=== PATIENT | female | born 1980 | race Caucasian/White ===

== ENCOUNTER 2018-11-10 09:13 | Outpatient (REF) | payer OTHER, SELFPAY ==
--- NOTE | 2018-11-10 08:40 | PAPFT_PTH ---
PATIENT: Juliane Hines LOC: [facility] U#:[id number] AGE/SX: 38/F ROOM: RE11/10/[address]: Lori Benites NP : 1980 BED: DIS: 11/10/2018 SPEC #: [id number] RECD: 11/10/18 12:49 STATUS: CUCA WING #: [id number] RODNEY: 11/10/18 08:[address]: Lori Benites NP DEPT: [facility] Cytology RECD BY: Jenny Asencio ENTERED: 11/10/18 12:50 SP TYPE: PAPFT OTHR DR: Mahin Brian Tissues: 1 - CX/ENDOCX FOR PAP SMEARS Procedures: PAP THIN PREP/UVM Screening HPV DNA PROBE Comments: [id number] (CHLAMYDIA/GC)
[2018-11-11 14:49] LABS: Chlamydia Result Negative; GC Result Negative; Specimen Description SEE COMMENTS
== END 2018-11-10 09:33 ==
LOC: LBN 09:13
PROVIDERS: PCP Internal Medicine; Visit Provider Nurse Practitioner Women's Health
DX: Z12.4 Encounter for screening for malignant neoplasm of cervix (principal); Z11.51 Encounter for screening for human papillomavirus (HPV); Z11.3 Encounter for screening for infections with a predominantly sexual mode of transmission
CPT/HCPCS: 87491; 87591; 88142; 87624

== ENCOUNTER 2018-11-22 00:46 | Outpatient (CLI) | payer OTHER, SELFPAY ==
--- NOTE | 2018-11-22 13:56 | DI.US_ITS ---
SYMPTOMS/DIAGNOSIS: PAIN WITH INTERCOURSE, PELVIC AND PERINEAL PAIN, R10.2 PELVIC ULTRASOUND: Transabdominal and transvaginal examination was performed. The uterus measures 8.4 cm long x 4 cm AP x 4.8 cm transverse. The endometrial stripe is within normal limits at 0.8 cm. The uterus appears grossly unremarkable. The right ovary measures 3.8 x 2.2 x 2.0 cm. There are small follicular cysts. There is normal blood flow. No evidence of torsion is seen. The left ovary measures 3.3 x 2.1 x 3.3 cm. There is normal blood flow. No evidence of torsion. There is a 2.5 x 2.5 x 2.5 cm complex thick-walled cyst in the left ovary. There is no internal blood flow. There is no significant free pelvic fluid or hydronephrosis. IMPRESSION: A 2.5 cm complex left ovarian cyst. This is likely physiologic, but a follow-up examination in six to eight weeks is recommended to document resolution.
== END 2018-11-22 01:06 ==
PROVIDERS: PCP Internal Medicine; Visit Provider Nurse Practitioner Women's Health
DX: R10.2 Pelvic and perineal pain (principal); N94.10 Unspecified dyspareunia; N83.292 Other ovarian cyst, left side
CPT/HCPCS: 76830; 76856

== ENCOUNTER 2019-01-09 01:07 | Outpatient (CLI) | payer OTHER, SELFPAY ==
--- NOTE | 2019-01-09 07:51 | DI.US_ITS ---
SYMPTOM/DIAGNOSIS: N83.292 COMPLEX LT OVARIAN CYST PELVIC ULTRASOUND: Transabdominal and transvaginal exams were performed. The uterus measures 7.8 x 3.8 x 4.7 cm. No fibroids are identified. The endometrial stripe measures 4 mm in thickness. There is a small amount of fluid within the endometrial cavity. No focal endometrial abnormality is seen. The ovaries are normal in size and appearance. There is no evidence of a cyst or mass. No free fluid or hydronephrosis is seen. IMPRESSION: Pelvic ultrasound is within normal limits.
== END 2019-01-09 01:27 ==
PROVIDERS: PCP Internal Medicine; Visit Provider Nurse Practitioner Women's Health
DX: N83.292 Other ovarian cyst, left side (principal)
CPT/HCPCS: 76830; 76856

== ENCOUNTER 2019-04-07 01:16 | Outpatient (CLI) | payer OTHER, SELFPAY ==
--- NOTE | 2019-04-07 13:26 | DI.COMBO_ITS ---
SYMPTOMS/DIAGNOSIS: RIGHT BREAST PAIN, MASTODYNIA-N64.4, RADIATING TO ARM 1 MO AGO AND INTO LYMPH NODE, H/O MULTIPLE SCLEROSIS DIAGNOSTIC BILATERAL MAMMOGRAM AND RIGHT BREAST ULTRASOUND: Mammograms were interpreted according to the usual protocol including computer analysis with CAD system, tomosynthesis and C view imaging. The patient notes pain in the right breast as well as right axilla and right arm. No focal area of tenderness or palpable abnormality is noted. This is a baseline examination. The breasts are composed of heterogeneously dense fibroglandular tissue, breast density category C. On the right MLO view, there is a question of a nodular asymmetry posterior over the pectoral muscle. Multiple additional spot compression views with tomography were performed, which fail to demonstrate a persistent abnormality. No suspicious calcifications are seen in either breast. There is no visible skin thickening. Right breast ultrasound shows no evidence of a cyst or mass. No skin edema is seen. IMPRESSION: Category 1, negative mammogram and right breast ultrasound. Annual screening is recommended at age 40 or sooner if clinically indicated. [facility] ASSESSMENT OF FINDINGS: Negative. Category 1. Patient will receive a letter notifying them of these results. Bi-RADS category C. The breasts are heterogeneously dense, which may obscure small masses.
== END 2019-04-07 01:36 ==
PROVIDERS: PCP Internal Medicine; Visit Provider Nurse Practitioner Women's Health
DX: N64.4 Mastodynia (principal); R59.1 Generalized enlarged lymph nodes; G35 Multiple sclerosis
CPT/HCPCS: 76642; 77062; 77066; G0279

== ENCOUNTER 2021-03-10 15:50 | Outpatient (REF) | payer OTHER, SELFPAY ==
[2021-03-10 20:06] LABS: Abs Immature Grans 0.02 10^3/uL (0.0-0.06); Absolute Basophil Count 0.03 10^3/uL (0.0-0.2); Absolute Lymphocyte Count 0.38 10^3/uL (1.2-3.4); Basophils % 0.6; Eosinophils % 1.9; HCT 37.3 % (36.0-46.0); Immature Grans % 0.4; Lymphocytes % 7.1; MCH 29.4 pg (27.0-33.0); MCHC 32.2 % (32.0-36.0); MCV 91.4 fL (80-95); MPV 11.1 fL (8.0-11.0); Monocytes % 11.3; Neutrophils % 78.7; Nucleated RBC 0 %; Platelet Count 277 10^3/uL (130-400); RBC 4.08 10^6/uL (3.93-5.22); RDW 12.1 % (11.7-14.6); RDW-SD 40.6 fL; WBC 5.33 10^3/uL (4.4-10.8)
[2021-03-10 20:13] LABS: ALT 127 U/L (14-59); AST 36 U/L (15-37); Albumin 4.1 g/dL (3.4-5.0); Alkaline Phosphatase 46 U/L (46-116); Anion Gap 6.7 mmol/L (3-11); BUN 10 mg/dL (7-18); Bilirubin, Total 0.4 mg/dL (0.2-1.0); CO2 29.3 mmol/L (21.0-32.0); CREATININE 0.8 mg/dL (0.55-1.02); Calcium 9.5 mg/dL (8.5-10.1); Chloride 105 mmol/L (98-107); Glucose 88 mg/dL (74-106); Potassium 3.9 mmol/L (3.5-5.1); Sodium 141 mmol/L (136-145); Total Protein 6.8 g/dL (6.4-8.2)
== END 2021-03-10 15:51 | disposition home or self-care (01) ==
LOC: NCHCN 15:50
PROVIDERS: PCP Family Medicine; Visit Provider Internal Medicine
DX: G35 Multiple sclerosis (principal); Z51.81 Encounter for therapeutic drug level monitoring
CPT/HCPCS: 80053; 85025

== ENCOUNTER 2021-04-30 09:23 | Outpatient (REF) | payer OTHER, SELFPAY ==
[2021-05-01 06:54] LABS: ALT 77 U/L (14-59); AST 26 U/L (15-37); Albumin 4.1 g/dL (3.4-5.0); Alkaline Phosphatase 43 U/L (46-116); Bilirubin, Direct 0.2 mg/dL (0.0-0.2); Bilirubin, Total 0.9 mg/dL (0.2-1.0); Total Protein 6.8 g/dL (6.4-8.2)
[2021-05-01 07:11] LABS: Calculated LDL 97 mg/dL (<100); Cholesterol 170 mg/dL (<200); HDL Cholesterol 59 mg/dL (40-60); Triglyceride 73 mg/dL (<150)
== END 2021-04-30 09:24 | disposition home or self-care (01) ==
LOC: NCHCN 09:23
PROVIDERS: PCP Family Medicine; Visit Provider Internal Medicine
DX: R94.5 Abnormal results of liver function studies (principal)
CPT/HCPCS: 80061; 80076

== ENCOUNTER 2021-12-04 15:58 | Outpatient (REF) | payer OTHER, SELFPAY ==
[2021-12-04 19:04] LABS: ALT 69 U/L (14-59); AST 29 U/L (15-37); Albumin 4.1 g/dL (3.4-5.0); Alkaline Phosphatase 48 U/L (46-116); Bilirubin, Direct 0.1 mg/dL (0.0-0.2); Bilirubin, Total 0.4 mg/dL (0.2-1.0); Total Protein 6.9 g/dL (6.4-8.2)
== END 2021-12-04 15:59 | disposition home or self-care (01) ==
LOC: NCHCN 15:58
PROVIDERS: PCP Family Medicine; Visit Provider Internal Medicine
DX: R94.5 Abnormal results of liver function studies (principal)
CPT/HCPCS: 80076

== ENCOUNTER 2021-12-09 01:45 | Outpatient (RCR) | payer OTHER, SELFPAY ==
[2021-12-05 15:18] LABS: HCT 37.8 % (36.0-46.0); HGB 12.8 g/dL (11.2-15.7); MCH 29.4 pg (27.0-33.0); MCHC 33.9 % (32.0-36.0); MCV 87 fL (80-95); MPV 10.4 fL (8.0-11.0); Platelet Count 276 10^3/uL (130-400); RBC 4.36 10^6/uL (3.93-5.22); RDW-SD 38.4 fL; WBC 6.78 10^3/uL (4.4-10.8)
[2021-12-05 15:22] LABS: ESR < 1 mm/hr (0-20)
[2021-12-05] MEDS: Normal Saline Flush 10 ML SYR IVP (15:26)
[2021-12-05 15:36] LABS: Anion Gap 9.7 mmol/L (3-11); BUN 9 mg/dL (7-18); C-Reactive Protein 0.08 mg/dL (0.0-0.3); CO2 25.3 mmol/L (21.0-32.0); CREATININE 0.9 mg/dL (0.55-1.02); Calcium 8.9 mg/dL (8.5-10.1); Chloride 106 mmol/L (98-107); Glucose 90 mg/dL (74-106); Potassium 3.8 mmol/L (3.5-5.1); Sodium 141 mmol/L (136-145)
[2021-12-06] MEDS: Normal Saline Flush 10 ML SYR IVP (10:30)
[2021-12-07] MEDS: Normal Saline Flush 10 ML SYR IVP (10:00)
[2021-12-08] MEDS: Normal Saline Flush 10 ML SYR IVP (07:45)
[2021-12-09] MEDS: Normal Saline Flush 10 ML SYR IVP (07:46)
== END 2021-12-23 23:59 | disposition home or self-care (01) ==
LOC: INF 01:45
PROVIDERS: Internal Medicine; PCP Family Medicine; Visit Provider Family Medicine
DX: G35 Multiple sclerosis (principal)
CPT/HCPCS: 36415; 80048; 85027; 85652; 96365; 86140; J2930

== ENCOUNTER 2021-12-16 02:01 | Outpatient (CLI) | payer OTHER, SELFPAY ==
--- NOTE | 2021-12-16 13:45 | DI.MRI_ITS ---
Exam(s) MR BRAIN WO/W EXAM: MR BRAIN WO/W CLINICAL HISTORY: RELAPSING/REMITTING MS, G35, RECENT EXACERBATION, ? NEW LESIONS TECHNIQUE: Multiplanar multisequence MRI of the brain was performed. Post contrast imaging was also obtained, with T1 weighted axial and coronal imaging and multi planar T1 MP rage imaging. FINDINGS: The ventricular system is normal in appearance. There are multiple areas of periventricular and subcortical signal abnormality consistent with the patricio ahmadi's diagnosis of multiple sclerosis, as noted on prior brain MRI July 2017. These appear esse ntially unchanged comparison with previous examination, no definite new lesion or increased size of e xisting lesions is seen. There is no enhancement associated with the lesions as observed today. The orbital and temporal bone structures appear intact as does the pituitary. Diffusion weighted imaging shows no evidence of infarction. Susceptibility weighted imaging shows no evidence of intracranial hemorrhage. There is normal flow void in the [place] vasculature. There is no evidence of a mass lesion or enhancing lesion in the brain. IMPRESSION: No significant interval change in appearance of previously noted white matter lesions consistent with the patient's diagnosis of multiple sclerosis. No enhancement noted at this time. DATA REPOSITORY:
[2021-12-16] MEDS: Normal Saline Flush 10 ML SYR IVP (15:51)
[2021-12-16] MEDS: Gadoterate meglumine 20 ML VIAL 13 ML IVP (15:55)
== END 2021-12-16 02:21 ==
PROVIDERS: PCP Internal Medicine; Visit Provider Physician Assistant
DX: G35 Multiple sclerosis (principal)
CPT/HCPCS: 70553

== ENCOUNTER 2022-04-17 16:19 | Outpatient (REF) | payer OTHER, SELFPAY ==
--- NOTE | 2022-04-17 16:10 | PAPFT_PTH ---
PATIENT: Juliane Hines LOC: [facility] U#:[id number] AGE/SX: 41/F ROOM: RE04/17/[address]: Alisson Tejada : 1980 BED: DIS: 04/17/2022 SPEC #: [id number] RECD: 04/17/22 18:34 STATUS: CUCA REHiginio #: [id number] RODNEY: 04/17/22 16:[address]: Alisson Tejada DEPT: [facility] Cytology RECD BY: Jenny Asencio ENTERED: 04/17/22 18:34 SP TYPE: PAPFT OTHR DR: Terra Aldrich Tissues: 1 - CX/ENDOCX FOR PAP SMEARS Procedures: PAP THIN PREP/UVM Screening HPV DNA PROBE Comments: [id number]
== END 2022-04-17 16:20 | disposition home or self-care (01) ==
LOC: LBN 16:19
PROVIDERS: PCP Family Medicine; Visit Provider Obstetrics & Gynecology Gynecology
DX: Z12.4 Encounter for screening for malignant neoplasm of cervix (principal); Z11.51 Encounter for screening for human papillomavirus (HPV)
CPT/HCPCS: 88142; 87624

== ENCOUNTER 2022-05-12 02:55 | Outpatient (CLI) | payer OTHER, SELFPAY ==
--- NOTE | 2022-05-12 07:45 | DI.MAMMO_ITS ---
Exam(s) MAMMO SCREENING EXAM: MAMMO SCREENING CLINICAL HISTORY: screening TECHNIQUE: Bilateral full field digital CC and MLO mammographic images were obtained with 3D tomosyn thesis and utilizing computer aided detection (CAD). COMPARISON: Available for comparison. FINDINGS: Masses/Architectural Distortion: None seen. Microcalcifications: No suspicious pleomorphic-type are seen. Skin Thickening/Nipple Retraction: None. IMPRESSION: 1. No significant interval change with no specific features of malignancy noted. 2. Unless there is more urgent need, screening mammography is recommended, as per [place] [employer] guidelines. BI-RADS Category 1 - Negative Breast Density - Category C - Heterogeneously dense Breast density category C or D implies that the patient has dense breast tissue. Dense breast tissue is very common and is not abnormal but dense breast tissue can make it harder to find cancer on a ma mmogram. Also, dense breast tissue may increase their breast cancer risk. This information about the result of the mammogram report was provided to the patient to raise their awareness. Use this report when you speak with the patient about their risks for breast cancer, which includes their family hist ory. At that time, you may recommend for more screening tests (Ultrasound or MRI) as they might be us eful based on their risk. A negative radiographic report should not delay biopsy if a dominant or clinically suspicious mass is present. Up to ten percent of cancers are not identified on mammography. A negative report may reinforce clinical impression. Adenosis and dense breasts may obscure an underlying neoplasm. False positive reports average 6 to 10%. Patient will receive a letter notifying them of these results.
== END 2022-05-12 03:15 ==
LOC: DI 02:56
PROVIDERS: PCP Family Medicine; Visit Provider Obstetrics & Gynecology Gynecology
DX: Z12.31 Encounter for screening mammogram for malignant neoplasm of breast (principal)
CPT/HCPCS: 77063; 77067

== ENCOUNTER 2023-01-08 00:36 | Outpatient (CLI) | payer OTHER, SELFPAY ==
--- NOTE | 2023-01-08 09:05 | DI.MRI_ITS ---
Exam(s) MR BRAIN WO EXAM: MR BRAIN WO CLINICAL HISTORY: MULTIPLE SCLEROSIS G35 TECHNIQUE: Multiplanar multisequence MRI of the brain was performed. COMPARISON: MR MR BRAIN WO/W from 12/16/2021 FINDINGS: CEREBRAL PARENCHYMA: Appearance is stable with no change in size and number of the previously described periventricular pl aques when compared to the study November 2021. There are no new additional plaques. No evidence of restricted diffusion on DWI. There is no evidence of intracranial hemorrhage, new mass effect, or shift of midline structures. Th ere are no extra-axial fluid collections. Ventricles are not enlarged or shifted. PITUITARY GLAND: No mass nor parasellar abnormality. No obvious abnormality in the cavernous sinuses. FLOW VOIDS: The expected flow void are noted. No evidence of obvious aneurysm nor obvious vascular ma lformation. PARANASAL SINUSES: The visualized paranasal sinuses appear unremarkable. No obvious finding ORBITS: No obvious findings. IMPRESSION: Stable appearance without significant change compared to the MRI scan of 12/16/2021 DATA REPOSITORY:
== END 2023-01-08 00:56 ==
LOC: DI 00:36
PROVIDERS: PCP Family Medicine; Visit Provider Psychiatry & Neurology Neurology
DX: G35 Multiple sclerosis (principal)
CPT/HCPCS: 70551

== ENCOUNTER 2023-05-07 18:20 | Outpatient (REF) | payer OTHER, SELFPAY | END 2023-05-07 18:21 | disposition home or self-care (01) | LOC: LBN 18:20 | PROVIDERS: PCP Family Medicine; Visit Provider Obstetrics & Gynecology Gynecology | DX: N76.0 Acute vaginitis (principal) | CPT/HCPCS: 87480; 87510; 87660 ==

== ENCOUNTER → 2023-05-25 01:51 | Outpatient (CLI) | payer OTHER, SELFPAY ==
--- NOTE | 2023-05-25 12:00 | DI.MAMMO_ITS ---
Exam(s) MAMMO SCREENING EXAM: MAMMO SCREENING CLINICAL HISTORY: screening TECHNIQUE: Bilateral full field digital CC and MLO mammographic images were obtained with 3D tomosyn thesis and utilizing computer aided detection (CAD). COMPARISON: Available for comparison. FINDINGS: Masses/Architectural Distortion: None seen. Microcalcifications: No suspicious pleomorphic-type are seen. Skin Thickening/Nipple Retraction: None. IMPRESSION: 1. No significant interval change with no specific features of malignancy noted. 2. Unless there is more urgent need, screening mammography is recommended, as per [place] [employer] guidelines. BI-RADS Category 1 - Negative Breast Density - Category C - Heterogeneously dense Breast density category C or D implies that the patient has dense breast tissue. Dense breast tissue is very common and is not abnormal but dense breast tissue can make it harder to find cancer on a ma mmogram. Also, dense breast tissue may increase their breast cancer risk. This information about the result of the mammogram report was provided to the patient to raise their awareness. Use this report when you speak with the patient about their risks for breast cancer, which includes their family hist ory. At that time, you may recommend for more screening tests (Ultrasound or MRI) as they might be us eful based on their risk. A negative radiographic report should not delay biopsy if a dominant or clinically suspicious mass is present. Up to ten percent of cancers are not identified on mammography. A negative report may reinforce clinical impression. Adenosis and dense breasts may obscure an underlying neoplasm. False positive reports average 6 to 10%. Patient will receive a letter notifying them of these results.
== END ==
PROVIDERS: PCP Family Medicine; Visit Provider Obstetrics & Gynecology Gynecology
DX: Z12.31 Encounter for screening mammogram for malignant neoplasm of breast (principal)
CPT/HCPCS: 77063; 77067

== ENCOUNTER 2024-05-23 01:22 | Outpatient (CLI) | payer OTHER, SELFPAY ==
--- NOTE | 2024-05-23 | DI.MRI_ITS ---
Exam(s) MR BRAIN WO EXAM: MR BRAIN WO CLINICAL HISTORY: F/U MS, ON GILENYA,EVALUATE FOR STABILITY,G35 TECHNIQUE: Multiplanar multisequence MRI of the brain was performed. COMPARISON: MR MR BRAIN WO from 01/08/2023 FINDINGS: VENTRICLES AND EXTRA AXIAL SPACES: Normal in size and morphology for the patient's age. MIDLINE SHIFT: None. CEREBRAL PARENCHYMA: No focus of restricted diffusion to suggest acute infarct. No space-occupying le mi identified. There has been no interval change in the size of the high signal lesions in the whi te matter, largest noted adjacent to the posterior aspect of the right lateral ventricle. There are no new lesions. No associated diffusion weighted abnormality.. BRAINSTEM/CEREBELLUM: Normal. VISUALIZED PARANASAL SINUSES: Clear. MASTOIDS:Clear. Vasculature: Normal flow void. PITUITARY GLAND: Unremarkable. ORBITS: Unremarkable. IMPRESSION: Stable white matter lesions consistent with history of multiple sclerosis. No new abnormalities. DATA REPOSITORY:
== END 2024-05-23 01:42 ==
LOC: DI 01:22
PROVIDERS: PCP Family Medicine; Visit Provider Psychiatry & Neurology Neurology
DX: G35 Multiple sclerosis (principal)
CPT/HCPCS: 70551

== ENCOUNTER 2024-05-23 11:14 | Outpatient (CLI) | payer OTHER, SELFPAY ==
[2024-05-23 08:41] LABS: Abs Immature Grans 0.02 10^3/uL (0.0-0.06); Absolute Basophil Count 0.02 10^3/uL (0.0-0.2); Absolute Eosinophil Count 0.06 10^3/uL (0.0-0.7); Absolute Lymphocyte Count 0.47 10^3/uL (1.2-3.4); Absolute Monocyte Count 0.62 10^3/uL (0.1-0.8); Absolute Neutrophil Count 4.84 10^3/uL (1.2-6.7); Basophils % 0.3 %; HCT 40.4 % (36.0-46.0); HGB 13.6 g/dL (11.2-15.7); Immature Grans % 0.3 %; Lymphocytes % 7.8 %; MCH 29.9 pg (27.0-33.0); MCHC 33.7 % (32.0-36.0); MCV 89 fL (80-95); MPV 9.8 fL (8.0-11.0); Monocytes % 10.3 %; Neutrophils % 80.3 %; Platelet Count 266 10^3/uL (130-400); RBC 4.55 10^6/uL (3.93-5.22); RDW-SD 39.3 fL; WBC 6.03 10^3/uL (4.4-10.8)
[2024-05-23 09:37] LABS: ALT 72 U/L (14-59); AST 24 U/L (15-37); Alkaline Phosphatase 50 U/L (46-116); Anion Gap 11.5 mmol/L (3-11); BUN 10 mg/dL (7-18); Bilirubin, Total 0.82 mg/dL (0.2-1.0); CO2 25.5 mmol/L (21.0-32.0); CREATININE 0.8 mg/dL (0.55-1.02); Calcium 9.6 mg/dL (8.5-10.1); Chloride 107 mmol/L (98-107); Glucose 88 mg/dL (74-106); Potassium 4.3 mmol/L (3.5-5.1); Sodium 144 mmol/L (136-145); Total Protein 7.1 g/dL (6.4-8.2)
== END 2024-05-23 11:15 | disposition home or self-care (01) ==
LOC: LBO 11:21
PROVIDERS: PCP Family Medicine; Visit Provider Psychiatry & Neurology Neurology
DX: G35 Multiple sclerosis (principal); Z79.899 Other long term (current) drug therapy
CPT/HCPCS: 36415; 80053; 85025

== ENCOUNTER 2024-05-23 11:24 | Outpatient (REF) | payer OTHER, SELFPAY | END 2024-05-23 11:25 | disposition home or self-care (01) | LOC: LBN 11:24 | PROVIDERS: PCP Family Medicine; Visit Provider Obstetrics & Gynecology Gynecology | DX: N76.1 Subacute and chronic vaginitis (principal) | CPT/HCPCS: 87480; 87510; 87660 ==

== ENCOUNTER 2024-06-19 01:21 | Outpatient (CLI) | payer OTHER, SELFPAY ==
--- NOTE | 2024-06-19 09:05 | DI.MAMMO_ITS ---
Exam(s) MAMMO SCREENING EXAM: MAMMO SCREENING CLINICAL HISTORY: screening TECHNIQUE: Bilateral full field digital CC and MLO mammographic images were obtained with 3D tomosyn thesis and utilizing computer aided detection (CAD). COMPARISON: Available for comparison. FINDINGS: Masses/Architectural Distortion: None seen. Microcalcifications: No suspicious pleomorphic-type are seen. Skin Thickening/Nipple Retraction: None. IMPRESSION: 1. No significant interval change with no specific features of malignancy noted. 2. Unless there is more urgent need, screening mammography is recommended, as per [place] [employer] guidelines. BI-RADS Category 1 - Negative Breast Density - Category C - Heterogeneously dense Breast density category C or D implies that the patient has dense breast tissue. Dense breast tissue is very common and is not abnormal but dense breast tissue can make it harder to find cancer on a ma mmogram. Also, dense breast tissue may increase their breast cancer risk. This information about the result of the mammogram report was provided to the patient to raise their awareness. Use this report when you speak with the patient about their risks for breast cancer, which includes their family hist ory. At that time, you may recommend for more screening tests (Ultrasound or MRI) as they might be us eful based on their risk. A negative radiographic report should not delay biopsy if a dominant or clinically suspicious mass is present. Up to ten percent of cancers are not identified on mammography. A negative report may reinforce clinical impression. Adenosis and dense breasts may obscure an underlying neoplasm. False positive reports average 6 to 10%. Patient will receive a letter notifying them of these results.
== END 2024-06-19 01:41 ==
LOC: DI 01:21
PROVIDERS: PCP Family Medicine; Visit Provider Obstetrics & Gynecology Gynecology
DX: Z12.31 Encounter for screening mammogram for malignant neoplasm of breast (principal); R92.333 Mammographic heterogeneous density, bilateral breasts
CPT/HCPCS: 77063; 77067

== ENCOUNTER 2025-05-11 05:03 | Outpatient (CLI) | payer OTHER, SELFPAY ==
--- NOTE | 2025-05-11 | DI.MRI_ITS ---
Exam(s) MR BRAIN WO/W EXAM: MR BRAIN WO/W CLINICAL HISTORY: MS G35 PALPITATIONS R00.2 HIGH RISK MED USE Z79.899 RVAL FOR STABILITY. TECHNIQUE: Multiplanar multisequence MRI of the brain was performed. CONTRAST MATERIAL: IV Contrast: 13 ML of Dotarem contrast administered. COMPARISON: MR MR BRAIN WO from 05/23/2024 FINDINGS: VENTRICLES AND EXTRA AXIAL SPACES: Normal in size and morphology for the patient's age. HEMORRHAGE: None. CEREBRAL PARENCHYMA: No focus of restricted diffusion to suggest acute infarct. No space-occupying lesion identified. Stable multifocal lesions in the white matter. No abnormal enhancement. BRAINSTEM/CEREBELLUM: Normal. CALVARIUM: Normal. ENHANCEMENT: No suspicious enhancement identified. VISUALIZED PARANASAL SINUSES/MASTOIDS: Clear. Orbits: Unremarkable. Pituitary: Not enlarged. Vasculature: Normal flow voids. IMPRESSION: Stable white matter lesions consistent with patient's diagnosis of multiple sclerosis. DATA REPOSITORY:
[2025-05-11] MEDS: Gadoterate meglumine 20 ML SYRINGE IVP (08:49)
[2025-05-11] MEDS: Normal Saline Flush 10 ML SYR IVP (08:49)
== END 2025-05-11 05:23 ==
LOC: DI 05:03
PROVIDERS: PCP Family Medicine; Visit Provider Psychiatry & Neurology Neurology
DX: R00.2 Palpitations (principal); Z79.899 Other long term (current) drug therapy
CPT/HCPCS: 70553

== ENCOUNTER 2025-05-22 01:18 | Outpatient (CLI) | payer OTHER, SELFPAY ==
[2025-05-22 13:58] LABS: Abs Immature Grans 0.02 10^3/uL (0.0-0.06); HCT 38.8 % (36.0-46.0); HGB 13.3 g/dL (11.2-15.7); Immature Grans % 0.3 %; MCH 29.4 pg (27.0-33.0); MCHC 34.3 % (32.0-36.0); MCV 86 fL (80-95); MPV 9.6 fL (8.0-11.0); Platelet Count 276 10^3/uL (130-400); RBC 4.52 10^6/uL (3.93-5.22); RDW 12.0 % (11.7-14.6); RDW-SD 37.8 fL; WBC 6.41 10^3/uL (4.4-10.8)
[2025-05-22 14:49] LABS: ALT 84 U/L (14-59); AST 26 U/L (15-37); Albumin 4.0 g/dL (3.4-5.0); Alkaline Phosphatase 46 U/L (46-116); Anion Gap 7.3 mmol/L (3-11); BUN 10 mg/dL (7-18); Bilirubin, Total 0.5 mg/dL (0.2-1.0); CO2 27.7 mmol/L (21.0-32.0); Calcium 9.2 mg/dL (8.5-10.1); Chloride 105 mmol/L (98-107); Estimated GFR 109.30 (mL/min/1.73m2); Glucose 86 mg/dL (74-106); Potassium 3.8 mmol/L (3.5-5.1); Sodium 140 mmol/L (136-145); Total Protein 7.1 g/dL (6.4-8.2)
== END 2025-05-22 01:19 | disposition home or self-care (01) ==
LOC: LBO 01:18
PROVIDERS: PCP Family Medicine; Visit Provider Psychiatry & Neurology Neurology
DX: G35.B0 Primary progressive multiple sclerosis, unspecified (principal); Z79.899 Other long term (current) drug therapy
CPT/HCPCS: 36415; 80053; 85025

== ENCOUNTER → 2025-06-27 01:06 | Outpatient (CLI) | payer OTHER, SELFPAY ==
--- NOTE | 2025-06-27 07:30 | DI.MAMMO_ITS ---
Exam(s) MAMMO SCREENING EXAM: MAMMO SCREENING CLINICAL HISTORY: screening,z12.39 TECHNIQUE: Bilateral full field digital CC and MLO mammographic images were obtained with 3D tomosynthesis and utilizing computer aided detection (CAD). COMPARISON: Comparison is made with prior examinations. FINDINGS: Masses/Architectural Distortion: There is a new well-circumscribed 5 mm nodule in the posterior central right breast on the MLO view from the 6 cm from the nipple. This area should be further evaluated. Microcalcifications: No suspicious pleomorphic-type are seen. Skin Thickening/Nipple Retraction: None. IMPRESSION: 1. New 5 mm nodule in the posterior central right breast. 2. A spot compression views requested. Ultrasound may be indicated at that time. BI-RADS Category 0 - Incomplete: Need additional imaging evaluation Breast Density - Category C - The breast are heterogeneously dense, which may obscure small masses. Breast density Category C or D implies that the patient has dense breast tissue. Dense breast tissue can make it harder to find cancer on a mammogram. Dense breast tissue is also associated with an increased risk of breast cancer. This information about the result of the mammogram report was provided to the patient to raise their awareness. Use this report when you speak with the patient about their risks for breast cancer, which includes their family history. At that time, you may recommend additional screening tests (Ultrasound or MRI) as these tests may add significant information. A negative radiographic report should not delay biopsy if a dominant or clinically suspicious mass is present. Up to ten percent of cancers are not identified on mammography. A negative report may reinforce clinical impression. Adenosis and dense breasts may obscure an underlying neoplasm. False positive reports average 6 to 10%. Patient will receive a letter notifying them of these results.
== END ==
PROVIDERS: PCP Family Medicine; Visit Provider Obstetrics & Gynecology
DX: Z12.31 Encounter for screening mammogram for malignant neoplasm of breast (principal)
CPT/HCPCS: 77063; 77067

== ENCOUNTER → 2025-07-03 00:26 | Outpatient (CLI) | payer OTHER, SELFPAY ==
--- NOTE | 2025-07-03 | DI.MAMMO_ITS ---
Exam(s) MG MAMMO SCREEN CALL BACK UNI US BREAST RT LIMITED EXAM: US BREAST RT LIMITED CLINICAL HISTORY: NEW 5MM NODULE IN POSTERIOR CENTRAL RIGHT BREAST. TECHNIQUE: Mediolateral oblique spot compression digital Mammography views of the rightbreast with Tomosynthesis and right breast ultrasound. COMPARISON: MG MG mammo diagnostic BI from 04/07/2019 US US breast RT complete from 04/07/2019 MG MG MAMMO SCREENING from 05/12/2022 MG MG MAMMO SCREENING from 06/19/2024 MG MG MAMMO SCREENING from 06/27/2025 MG MG MAMMO SCREEN CALL BACK UNI from 07/03/2025 FINDINGS: Mammography/Tomosynthesis: Masses: There is a persistent 4 millimeter circumscribed nodule. Architectural Distortion: None seen. Microcalcifictions: No suspicious pleomorphic-type are seen. Skin Thickening/Nipple Retraction: None. Right breast US: Echotexture: Normal appearance of the glandular tissue. Shadowing: No suspicious foci. Cyst: Cyst in the retroareolar region measuring 9 x 6 x 9 millimeters. Additional 3 mm cyst 2 o'clock position 3 cm from the nipple. Solid lesions: Hypoechoic smoothly marginated avascular in nodule measuring 1.9 x 2.1 x 1.3 cm located in the 11 o'clock position 1 cm from the nipple. No suspicious features. The findings likely represent a fibroadenoma. This is not discretely visible on the mammogram. Ductal dilation: None. IMPRESSION: 1. No evidence of malignancy is noted. 2.1 centimeter hypoechoic nodule has the appearance of a fibroadenoma. 2. The patient is not comfortable waiting for a follow-up ultrasound and MRI is recommended for further evaluation. 3. The findings were discussed with the patient on the date of the examination. BI-RADS Category 0 - Incomplete: Need additional imaging evaluation Breast Density - Category C - The breast are heterogeneously dense, which may obscure small masses. Breast density Category C or D implies that the patient has dense breast tissue. Dense breast tissue can make it harder to find cancer on a mammogram. Dense breast tissue is also associated with an increased risk of breast cancer. This information about the result of the mammogram report was provided to the patient to raise their awareness. Use this report when you speak with the patient about their risks for breast cancer, which includes their family history. At that time, you may recommend additional screening tests (Ultrasound or MRI) as these tests may add significant information. A negative radiographic report should not delay biopsy if a dominant or clinically suspicious mass is present. Up to ten percent of cancers are not identified on mammography. A negative report may reinforce clinical impression. Adenosis and dense breasts may obscure an underlying neoplasm. False positive reports average 6 to 10%. Patient will receive a letter notifying them of these results.
== END ==
LOC: DI 00:26
PROVIDERS: PCP Family Medicine; Visit Provider Obstetrics & Gynecology
DX: Z12.31 Encounter for screening mammogram for malignant neoplasm of breast (principal); N63.41 Unspecified lump in right breast, subareolar
CPT/HCPCS: 76642; 77063; 77067